=== PATIENT | male | born 1980 | race Caucasian/White ===

== ENCOUNTER → 2023-03-16 10:39 | Outpatient (CLI) | payer BC, SELFPAY ==
[2023-03-16 11:34] LABS: Basophils # 0.1 K/mm3 (0-0.2); Basophils % 0.5 % (0.1-2.0); Eosinophils # 0.2 K/mm3 (0.0-0.4); Eosinophils % 1.6 % (0.1-12.0); Hematocrit 57.4 % (42.0-52.0); Lymphocytes # 2.1 K/mm3 (0.7-4.5); Lymphocytes % 20.7 % (10-50); Mean Corpuscular HGB Conc 33.2 g/dL (31.8-35.4); Mean Corpuscular Hemoglobin 28.3 pg (27.0-31.2); Mean Corpuscular Volume 85.2 fl (80-94); Mean Platelet Volume 7.9 fl (7.4-10.4); Monocytes # 0.8 K/mm3 (0.1-1.0); Monocytes % 7.5 % (1.7-9.3); Neutrophils % 69.7 % (37.0-80.0); Platelet Count 281 K/mm3 (142-424); Red Blood Count 6.73 M/mm3 (4.60-6.20); Red Cell Distribution Width 15.5 % (11.5-17.5); White Blood Count 10.1 K/mm3 (4.8-10.8)
[2023-03-16 12:08] LABS: Alanine Aminotransferase 108 U/L (12-78); Albumin Level 4.4 g/dl (3.5-5.0); Alkaline Phosphatase 64 U/L (38-126); Anion Gap 15.2 mEq/L (5-15); Aspartate Amino Transferase 65 U/L (17-59); Bilirubin,Direct 0.4 mg/dl (0.0-0.4); Bilirubin,Indirect 1.1 mg/dL (0.0-0.9); Bilirubin,Total 1.5 mg/dl (0.2-1.3); Bilirubin,Unconjugated 1.2 mg/dL (0.0-1.1); Blood Urea Nitrogen 15 mg/dl (9-20); Carbon Dioxide 33 mmol/L (22.0-30.0); Chloride 100 mmol/L (98-107); Chol/HDL Ratio 7.7 (1-3.5); Cholesterol 170 mg/dl (140-200); Estimated Glomerular Filt Rate 74 ml/min (>60); GFR (African American) 89 ML/MIN (>60); Glucose 92 mg/dl (74-100); HDL Cholesterol 22 mg/dl (40-60); Potassium 4.2 mmoL/L (3.5-5.1); Sodium 144 mmol/L (136-145); Total Protein,Serum 7.5 g/dl (6.3-8.2); Triglycerides 135 mg/dl (30-150); VLDL Cholesterol 27 mg/dL (0-40)
[2023-03-16 12:19] LABS: Direct LDL Cholesterol 120.66 mg/dL (100-129)
[2023-03-16 12:25] LABS: Free T4 (Free Thyroxine) 0.92 ng/dl (0.78-2.19); Hemoglobin 19.1 g/dL (14.1-18.0)
[2023-03-16 12:38] LABS: Thyroid Stimulating Hormone 1.03 uIU/mL (0.465-4.68)
[2023-03-16 12:44] LABS: Troponin I < 0.01 ng/ml (0.00-0.034)
== END ==
PROVIDERS: PCP Nurse Practitioner; Visit Provider Physician Assistant
DX: R06.00 Dyspnea, unspecified (principal); R94.31 Abnormal electrocardiogram [ECG] [EKG]; E11.9 Type 2 diabetes mellitus without complications; I11.9 Hypertensive heart disease without heart failure; Z86.73 Personal history of transient ischemic attack (TIA), and cerebral infarction without residual deficits
CPT/HCPCS: 36415; 80048; 80061; 80076; 84439; 84443; 84484; 85025

== ENCOUNTER → 2023-03-22 07:02 | Outpatient (CLI) | payer BC, SELFPAY ==
--- NOTE | 2023-03-22 07:06 | NM_ITS ---
APPROVED REPORT Exam: Nuclear Stress Test Indication: soa..high bp..high cholesterol..family hx..tobacco user Patient Location: Outpatient Stress Tech: Meenu Pike [place] Tech:RAIN Mcintyre RT(R)(N) Ht: 6 ft 4 in Wt: 300 lbs HR: 87 bpm BP: 140/73 mmHg BSA: 2.63 m2 Rhythm: NSR TID: 1.17 BMI: 36.5 History: soa..high bp..high cholesterol..family hx..tobacco user Procedure: Patient exercised on Roberto protocol 11:30 minutes and sec, resting heart rate 87 bpm, resting blood pressure 140/73 mmHg, with exercise maximum heart rate achived was 133 bpm which is 74 % of the maximum predicted heart rate and blood pressure was 160/88 mmHg. Test was stopped due to back pain. Patient denied any complaint of chest pain. Patient has Average exercise capacity, achieved 12.8 METs of workload on treadmill, the blood pressure response to exercise was Normal. Cardiac Stress and Resting SPECT Images: Cardiac Stress and Resting SPECT images were obtained using technetium 99m Myoview 32.5 mCi stress and 10.72 mCi at rest. This is a suboptimal stress test as the patient could not achieve target HR. Raw images demonstrate significant diaphragm overlap with the inferior border of the LV wall. This may affect the diagnostic interpretation of the study findings. Resting and stress imaging in supine position demonstrate a medium sized, moderate, fixed perfusion defect in the inferior LV wall. This is no longer visualized with prone stress imaging. Findings are suggestive of diaphragmatic attenuation. Gated imaging demonstrates mild reduction in global and regional LV systolic function. LVEF is calculated at 47%. Conclusion: Suboptimal stress test as the patient could not achieve target HR. Diaphragmatic attenuation is present. No definite evidence of fixed or reversible perfusion defects. Gated imaging demonstrates mild reduction in global and regional LV systolic function. LVEF is calculated at 47%. As this was a suboptimal non-diagnostic stress test (unable to achieve target HR), further evaluation with alternative diagnostic modality, e.g. CCTA, is recommended. Also, evaluation of cardiomyopathy is recommended with TTE and/or cardiac MRI (cardiomyopathy protocol). Electronically signed by : Vidya Spence MD 03/25/2023 01:18:10
--- NOTE | 2023-03-22 08:52 | CA_ITS ---
APPROVED REPORT Exam: Exercise Treadmill Technologist: Meenu Anthony, Ht: 6 ft 4 in Wt: 299 lbs BSA: 2.63 m2 HR: 80 bpm BP: 124/79 mmHg Rhythm: NSR Medical History Medications: Amlodipine,,,,, Omeprazole,,,,, Hydralazine,,,,, Aspirin,,,,, Atorvastatin,,,,, Sertraline,,,,, Toprol XL,,,,, CHlorALIDONE,,,,, NitrogGLYCERIN,,,,, AZIlsartan modoxomil,,,,, Stress Test Details Test: Roberto HR Resting HR: 87 bpm Max Heart Rate (APMHR): 179 bpm Max HR Achieved: 133 bpm Target HR (85% APMHR): 152 bpm % of APMHR: 74 Recovery HR: 96 bpm HR response to stress: Blunted HR response to stress BP Resting BP: 140.0/73 mmHg Max BP: 160/88 mmHg Recovery BP: 141.0/79.0 mmHg BP response to stress: Normal blood pressure response to stress. ECG Resting ECG: NSR, right axis deviation, LVH, nonspecific ST changes Stress EC.[address] depression Arrhythmia: None Recovery ECG: Return to baseline within 3 minutes of recovery Recovery Arrhythmia: None Clinical Exercise duration: 11:30 min Highest Stage Achieved: IV Exercise capacity: 12.8 METs Stress ECG Conclusion This was a suboptimal stress test as the patient could not achieve target HR. The patient was able to exercise for a total of 30 minutes, 30 seconds. He achieved a total of 12.8 METS. He has average exercise capacity compared to age and sex matched peers. He has blunted HR, but normal BP, response to exercise. Max HR: 133 % of PM: 74% Max BP: 160/88 METs: 12.8 Test stopped due to: SOA, Back pain Symptoms: No CP. Arrhythmias/Ectopy: None ST-T Changes: 0.[address] depression in lateral leads Conclusion: Suboptimal stress test as the patient could not achieve target HR. Average exercise capacity.ECG stress test shows possible ischemia at peak stress. Myoview images are reported separately. Test Summary REST . . . . . . . Sitting REST . . . . . . . Standing REST 05:19 0.0 0.0 87 . 140/ 73 . . Stage 1 01:00 10.0 1.7 93 . . . . Stage 1 02:00 10.0 1.7 96 . . . . Stage 1 03:00 10.0 1.7 98 . 152/ 76 . . Stage 2 01:00 12.0 2.5 106 . . . . Stage 2 02:00 12.0 2.5 104 . . . . Stage 2 03:00 12.0 2.5 108 . . . . Stage 3 01:00 14.0 3.4 111 . . . . Stage 3 02:00 14.0 3.4 119 . . . . Stage 3 03:00 14.0 3.4 119 . . . . Stage 4 01:00 16.0 4.2 123 . . . . Stage 4 02:00 16.0 4.2 130 . . . . Stage 4 02:30 16.0 4.2 132 . . . Stop exercise at 11:30 RECOVERY 01:00 0.0 0.0 119 . . . . RECOVERY 02:00 0.0 0.0 108 . . . . RECOVERY 03:00 0.0 0.0 103 . 146/ 83 . . RECOVERY 04:00 0.0 0.0 101 . 160/ 88 . . RECOVERY 05:00 0.0 0.0 97 . 160/ 88 . . RECOVERY 06:00 0.0 0.0 96 . 141/ 79 . . RECOVERY 06:20 0.0 0.0 96 . 141/ 79 . . Electronically signed by : Vidya Spence MD 03/25/2023 01:13:40
== END ==
LOC: RAD 07:02
PROVIDERS: PCP Nurse Practitioner; Visit Provider Physician Assistant
DX: R06.00 Dyspnea, unspecified (principal); I10 Essential (primary) hypertension; R94.31 Abnormal electrocardiogram [ECG] [EKG]; G47.33 Obstructive sleep apnea (adult) (pediatric)
CPT/HCPCS: 78452; 93017; A9502

== ENCOUNTER → 2023-04-06 08:35 | Outpatient (CLI) | payer BC, SELFPAY ==
--- NOTE | 2023-04-06 08:38 | CA_ITS ---
APPROVED REPORT EXAM: Comprehensive 2D, Doppler, and color-flow Echocardiogram Sulfur Chloride Operator: Yvette Hinkle RVT Ht: 6 ft 4 in Wt: 299lbs BSA: 2.63 BP: 138/88 mmHg Indications: DYSPENA,ABN EKG,HANSA,FATIGUE,HTN 2D Dimensions LVOT 2.52 cm (M/F) 1.5-2.5 LA Volume 63.50 mL LA Volume Index 24.14 mL/m2 (M/F) 16-34 M-Mode Dimensions RVDd 3.35 cm (0.9-2.6) LA Diam 4.98 cm (1.9-4.0) LVDd 5.67 cm (3.5-5.7) Ao Diam 3.25 cm (2.0-3.7) LVDs 3.71 cm (3.5-5.7) IVSd 1.38 cm (0.6-1.1) PWd 1.16 cm (0.6-1.1) EF (Teich) 63.00% FS 34.60% EDV (Teich) 158.10 mL TAPSE 2.54 (<1.7) ESV (Teich) 58.50 mL LV Diastology E Decel Time 150.00 (160-240 msec) E/A Ratio 0.8 MED E' 5.80 (< 7 cm/sec) E'/MED E' Ratio 14.24 (>14) LAT E' 6.90 (<10 cm/sec) E/LAT E' Ratio 11.97 (>14) Aortic Valve LVOT Max 140.00 (70-110 cm/s) LVOT VTI 27.38 cm AoV Peak Jer. 151.00 (50-130 cm/s) AO Peak GR. 9.20 mmHg AO Mean GR. 4.70 (<5 mmHg) AO VTI 26.15 (18-25 cm) LELAND (VTI) 5.22 (2.5-4.5 cm2) Mitral Valve MV E Max Jer. 83.00 (40-130 cm/s) MV A Velocity 102.00 (40-130 cm/s) E/A Ratio 0.81 MV Decel. Time 150.00 (160-240 ms) MV PHT 44.00 ms Pulmonary Valve PV Peak Velocity 115.00 (50-150 cm/s) Tricuspid Valve TR P. Velocity 189.00 cm/s RAP Estimate 10.00 mmHg RVSP 24.30 mmHg Left Ventricle The left ventricle is normal size. The left ventricular systolic function is normal. The left ventricular ejection fraction is within the normal range. There is markedly increased LV wall thickness (IVSd 1.9 cm). No evidence of LVOT obstruction at rest. There is normal LV segmental wall motion. Diastolic dysfunction is indeterminate due to marked hypertrophy. LVEF is 50-55%. Right Ventricle The right ventricle is mildly dilated. The right ventricular systolic function is normal. Atria The left atrium size is normal. The right atrium size is normal. There is no Doppler evidence of interatrial shunt. Aortic Valve The aortic valve opens well. There is no aortic valvular stenosis. Trace aortic regurgitation. Mitral Valve The mitral valve is normal in structure. There is mild systolic anterior motion (SOPHY) of the MV leaflet. No evidence of mitral valve stenosis. Mild mitral regurgitation. Tricuspid Valve The tricuspid valve leaflets are thin and pliable. Trace tricuspid regurgitation. There is insufficient TR jet to estimate RVSP. Pulmonic Valve The pulmonary valve is normal in structure. Trace pulmonic regurgitation. Great Vessels The aortic root is normal in size. The ascending aorta is normal in size. IVC is normal in size and collapses >50% with inspiration. Pericardium There is no pericardial effusion. Other Information Study Quality: Adequate Conclusion Normal biventricular systolic function. Marked increase in LV wall thickness (IVSd 1.9 cm). Mildly dilated RV. Mild SOPHY. Mild MR. Due to marked increase in LV wall thickness, presence of SOPHY, and pattern of LVH on ECG, findings are highly suggestive of HCM. Further evaluation with cardiac MRI (HCM protocol) and exercise stress echo (to evaluate LVOT gradients with exercise) is recommended. Electronically signed by : Vidya Spence MD 04/08/2023 21:25:49
== END ==
PROVIDERS: Visit Provider Physician Assistant
DX: I10 Essential (primary) hypertension (principal); R06.00 Dyspnea, unspecified; R94.31 Abnormal electrocardiogram [ECG] [EKG]; G47.33 Obstructive sleep apnea (adult) (pediatric)
CPT/HCPCS: 93306

== ENCOUNTER → 2023-04-25 08:08 | Outpatient (CLI) | payer BC, SELFPAY ==
--- NOTE | 2023-04-25 | CA_ITS ---
APPROVED REPORT Exam: Exercise Treadmill Technologist: Meenu Anthony, Ht: 6 ft 4 in Wt: 297 lbs BSA: 2.62 m2 HR: 85 bpm BP: 129/77 mmHg Rhythm: NSR Medical History Medications: Amlodipine,,,,, Omeprazole,,,,, Hydralazine,,,,, Aspirin,,,,, Metoprolol,,,,, Atorvastatin,,,,, CHlorthalidone,,,,, Sertraline,,,,, Nitroglycerin,,,,, AZIlsartan medoxomil,,,,, Stress Test Details Test: Roberto HR Resting HR: 88 bpm Max Heart Rate (APMHR): 179 bpm Max HR Achieved: 137 bpm Target HR (85% APMHR): 152 bpm % of APMHR: 77 Recovery HR: 97 bpm HR response to stress: Blunted HR response to stress BP Resting BP: 132.0/79 mmHg Max BP: 134/80 mmHg Recovery BP: 125.0/61.0 mmHg BP response to stress: Blunted blood pressure response to stress. ECG Resting ECG: NSR, borderline criteria for LVH Stress ECG: No significant ST changes Arrhythmia: None Recovery ECG: No significant ST changes Recovery Arrhythmia: None Clinical Exercise duration: 12:00 min Highest Stage Achieved: IV Exercise capacity: 12.8 METs Overall Exercise Capacity for Age: Average Stress ECG Conclusion This is a suboptimal stress test as the patient was unable to achieve target HR. The patient was able to exercise for a total of 12 minutes, 0 seconds on Roberto protocol. He achieved a total of 12.8 METS. He has average exercise capacity compared to age and sex matched peers. He has blunted HR and BP response to exercise. Max HR: 137 % of PM: 77% Max BP: 134/80 METs: 12.8 Test stopped due to: SOA Symptoms: No CP. Arrhythmias/Ectopy: None ST-T Changes: within normal ST response to exercise for the suboptimal HR achieved Conclusion: Suboptimal stress test due to inability to achieve target HR. Average exercise capacity. No ST changes for degree of HR achieved. Stress echo images reported separately. Test Summary REST . . . . . . . Sitting REST . . . . . . . Standing REST 04:57 0.0 0.0 88 . 132/ 79 . . Stage 1 01:00 10.0 1.7 97 . . . . Stage 1 02:00 10.0 1.7 101 . . . . Stage 1 03:00 10.0 1.7 102 . . . . Stage 2 01:00 12.0 2.5 107 . 134/ 80 . . Stage 2 02:00 12.0 2.5 111 . 134/ 80 . . Stage 2 03:00 12.0 2.5 111 . 134/ 80 . . Stage 3 01:00 14.0 3.4 117 . . . . Stage 3 02:00 14.0 3.4 120 . . . . Stage 3 03:00 14.0 3.4 123 . . . . Stage 4 01:00 16.0 4.2 129 . . . . Stage 4 02:00 16.0 4.2 132 . . . . Stage 4 03:00 16.0 4.2 136 . . . Stop exercise at 12:00 RECOVERY 01:00 0.0 0.0 126 . . . . RECOVERY 02:00 0.0 0.0 114 . . . . RECOVERY 03:00 0.0 0.0 108 . . . . RECOVERY 04:00 0.0 0.0 103 . . . . RECOVERY 05:00 0.0 0.0 99 . . . . RECOVERY 06:00 0.0 0.0 102 . . . . RECOVERY 07:00 0.0 0.0 97 . . . . RECOVERY 08:00 0.0 0.0 98 . . . . RECOVERY 09:00 0.0 0.0 97 . . . . RECOVERY 10:00 0.0 0.0 97 . . . . RECOVERY 10:45 0.0 0.0 96 . 125/ 61 . . Electronically signed by : Vidya Spence MD 05/01/2023 14:46:27
--- NOTE | 2023-04-25 08:09 | CA_ITS ---
APPROVED REPORT EXAM: Limited 2D Echocardiogram Dry Box Tender: YUN Alan, RVS Ht: 6 ft 4 in Wt: 298lbs BSA: 2.62 HR: 84 bpm BP: 132/79 mmHg Rhythm: NSR Indications: R/O LVOT obstruction Echo Procedure The patient underwent an Exercise Stress Test using the Roberto Protocol. Blood pressure, heart rate, and EKG were monitored. An Echocardiogram was performed by biomass technician in four stages in quad fashion. At peak stress, four selected images were obtained and placed side by side with resting images for comparison. Stress Test Details Test: Exercise stress testing was performed using a Roberto protocol. HR Resting HR: 88 bpm Max Heart Rate (APMHR): 179 bpm Max HR Achieved: 137 bpm Target HR (85% APMHR): 152 bpm % of APMHR: 77 Recovery HR: 96 bpm HR response to stress: Blunted HR response to stress BP Resting BP: 132/79 mmHg Max BP: 160/88 mmHg BP response to stress: Blunted blood pressure response to stress. ECG Resting ECG: Normal sinus rhythm, LVH, right axis deviation, nonspecific ST changes Stress ECG: < 0.[address] depression Arrhythmia: None Recovery ECG: Return to baseline within 3 minutes of recovery Recovery Arrhythmia: None Clinical Exercise duration: 12.00 min Exercise capacity: 12.8 METs Overall Exercise Capacity for Age: Average Echo Findings The Pre-Stress Echocardiogram showed normal left ventricular contractility with an estimated Ejection Fraction of about 55%. At rest, there is no evidence of LVOT obstruction at rest or with Valsalva. The Post-Stress Echocardiogram showed normal left ventricular contractility with an estimated Ejection Fraction of about 65%. At maximal HR achieved, no provokable LVOT gradient was present. Notably, the study was suboptimal in the setting of inability to achieve target HR. Other Information Study Quality: Technically Limited. Technically limited study due to Inability to achieve target HR. Conclusion Suboptimal echo stress test due to inability to achieve target HR. Normal LV size and systolic function with good augmentation at peak stress at the HR level achieved. No LVOT obstruction at rest or with Valsalva. No evidence of provokable LVOT gradient at maximal HR achieved (suboptimal HR) Electronically signed by : Vidya Spence MD 05/07/2023 23:52:29
== END ==
LOC: RT 08:09
PROVIDERS: Visit Provider Physician Assistant
DX: I34.89 Other nonrheumatic mitral valve disorders; I42.9 Cardiomyopathy, unspecified; R06.00 Dyspnea, unspecified; R20.0 Anesthesia of skin; G47.33 Obstructive sleep apnea (adult) (pediatric); D58.2 Other hemoglobinopathies; R53.83 Other fatigue; R93.1 Abnormal findings on diagnostic imaging of heart and coronary circulation; R94.31 Abnormal electrocardiogram [ECG] [EKG]; I11.9 Hypertensive heart disease without heart failure
CPT/HCPCS: 93017; 93018; 93350

== ENCOUNTER → 2023-05-09 10:09 | Outpatient (CLI) | payer BC, SELFPAY ==
[2023-05-09 10:37] LABS: Chloride 96 mmol/L (98-107); Potassium 3.2 mmoL/L (3.5-5.1); Sodium 139 mmol/L (136-145)
[2023-05-09 10:39] LABS: Basophils % 0.4 % (0.1-2.0); Eosinophils # 0.1 K/mm3 (0.0-0.4); Eosinophils % 1.7 % (0.1-12.0); Hematocrit 52.7 % (42.0-52.0); Lymphocytes # 1.8 K/mm3 (0.7-4.5); Lymphocytes % 20.6 % (10-50); Mean Corpuscular HGB Conc 34.4 g/dL (31.8-35.4); Mean Corpuscular Hemoglobin 30.7 pg (27.0-31.2); Mean Corpuscular Volume 89.3 fl (80-94); Mean Platelet Volume 7.8 fl (7.4-10.4); Monocytes # 0.7 K/mm3 (0.1-1.0); Monocytes % 7.8 % (1.7-9.3); Neutrophils # 5.9 K/mm3 (1.8-7.8); Neutrophils % 69.5 % (37.0-80.0); Platelet Count 272 K/mm3 (142-424); Red Cell Distribution Width 14.3 % (11.5-17.5); White Blood Count 8.5 K/mm3 (4.8-10.8)
[2023-05-09 10:40] LABS: Alanine Aminotransferase 213 U/L (12-78); Albumin Level 4.5 g/dl (3.5-5.0); Albumin/Globulin Ratio 1.4 (1.1-1.8); Alkaline Phosphatase 55 U/L (38-126); Anion Gap 11.2 mEq/L (5-15); Aspartate Amino Transferase 121 U/L (17-59); Bilirubin,Total 1.1 mg/dl (0.2-1.3); Blood Urea Nitrogen 20 mg/dl (9-20); Calcium 8.9 mg/dl (8.4-10.2); Carbon Dioxide 35 mmol/L (22.0-30.0); Estimated Glomerular Filt Rate 61 ml/min (>60); GFR (African American) 74 ML/MIN (>60); Globulin 3.3 g/dL (1.3-3.2); Glucose 97 mg/dl (74-100); Iron 163 ug/dL (49-181); Total Protein,Serum 7.8 g/dl (6.3-8.2)
[2023-05-09 10:50] LABS: Total Iron Binding Capacity 296 ug/dL (261-462)
[2023-05-09 11:01] LABS: Hemoglobin 18.2 g/dL (14.1-18.0)
[2023-05-09 11:18] LABS: Ferritin 265 ng/ml (17.9-464)
== END ==
PROVIDERS: Visit Provider Physician Assistant
DX: I10 Essential (primary) hypertension (principal); I42.9 Cardiomyopathy, unspecified; R06.00 Dyspnea, unspecified; R20.0 Anesthesia of skin; R53.83 Other fatigue; R93.1 Abnormal findings on diagnostic imaging of heart and coronary circulation; R94.31 Abnormal electrocardiogram [ECG] [EKG]; G47.33 Obstructive sleep apnea (adult) (pediatric)
CPT/HCPCS: 36415; 80053; 82728; 83540; 83550; 85025

== ENCOUNTER → 2023-05-29 09:48 | Outpatient (CLI) | payer BC, SELFPAY ==
--- NOTE | 2023-05-29 12:15 | MR_ITS ---
APPROVED REPORT Ob/Gyn Nurse: CLINICAL INDICATION Increased LV wall thickness on TTE (IVSd 1.9 cm), possible mild SOPHY present on TTE TECHNIQUE Image Acquisition: Cardiac magnetic resonance (CMR) was performed on Siemens Espree MRI 1.5T scanner. Software platform sequences were performed using the Siemens Selerity MR B19 platform. A set of three-plane, low-resolution, large [id number] localizers were initially acquired. Then axial, coronal, sagittal TrueFISP, as well as axial HASTE images, were obtained. These were followed by gated TrueFISP breathold cinematic sequences obtained in the short axis with 8 mm slices and 2 mm gaps, 2-chamber (vertical long axis), 3-chamber, 4-chamber (horizontal long axis). A bolus of contrast was injected intravenously with first-pass sequences obtained in the short axis and four-chamber planes. After approximately 10 minutes, a TI carpet tile layer sequence was performed to determine the optimal TI time. Using the optimized TI time, delayed contrast enhancement segmented inversion???recovery TurboFLASH sequences were obtained in the short axis, 2-chamber, 3-chamber, and 4-chamber projections. 2D-velocity phase mapping was performed. Functional parameters were calculated by offline analysis on an independent workstation ([employer], [employer]). Contrast: ProHance??? (Gadoteridol) FINDINGS MORPHOLOGY AND FUNCTION Left ventricle: The left ventricle is normal in size. The indexed left ventricular end-diastolic volume (LVEDVi) is 82 ml/m2 (reference range 57-105 ml/m2 in males, 56-96 ml/m2 in females). Normal left ventricular systolic function is present. There is increased left ventricular wall thickness (maximum 13.1 mm in basal septal and anteroseptal LV ortiz). There are no regional wall motion abnormalities noted. LVEF is calculated at 67% (reference range 57-77%). Right ventricle: The right ventricle is normal in size. The indexed right ventricular end-diastolic volume (RVEDVi) is 83 ml/m2 (reference range 61-121 ml/m2 in males, 48-112 ml/m2 in females). Normal right ventricular systolic function is present. RVEF is calculated at 52 % (reference range 52-72% in males, 51-71% in females). Atria: The left atrium is normal in size. The maximum indexed left atrial volume is 31 ml/m2 (reference range 26-52 ml/m2 in males, 27-53 ml/m2 in females). The right atrium is normal in size. The maximum indexed right atrial volume is 19 ml/m2 (reference range 18-90 ml/m2). Aorta: The diameter of the aortic annulus is normal, measuring 24 mm (coronal view reference range 21-30 mm in males, 19-27 mm in females). The diameter of the aortic sinus is normal, measuring 31 mm (coronal view reference range 25-42 mm in males, 24-36 mm in females). The diameter of the sinotubular junction is normal, measuring 25 mm (coronal view reference range 18-32 mm in males, 18-28 mm in females). The diameters of the ascending and descending thoracic aorta are normal. Main pulmonary artery: The main pulmonary artery diameter is normal. Pericardium: The pericardial thickness is normal. The pericardial thickness measures 2.6 cm (normal < 4.0 cm). There is no pericardial effusion. VALVES The valvular morphologies in the visualized sequences appear normal. There is no significant valvular stenosis or regurgitation of the mitral, aortic, tricuspid, or pulmonic valve noted visually. Systolic anterior motion of the mitral valve is not visualized. Ratio of pulmonary to systemic flow, Qp:Qs ratio = 1.4 (normal < or = 1.2), demonstrating possible evidence of shunt. TISSUE CHARACTERIZATION Resting Perfusion: Normal myocardial blood flow at rest. No evidence of resting hypoperfusion. Myocardial Fibrosis and/or edema: Normal gadolinium kinetics are
== END ==
PROVIDERS: Visit Provider Physician Assistant
DX: I10 Essential (primary) hypertension (principal); I42.9 Cardiomyopathy, unspecified; R06.00 Dyspnea, unspecified; R20.0 Anesthesia of skin; R53.83 Other fatigue; R93.1 Abnormal findings on diagnostic imaging of heart and coronary circulation; R94.31 Abnormal electrocardiogram [ECG] [EKG]; G47.33 Obstructive sleep apnea (adult) (pediatric)
CPT/HCPCS: 75561; A9576